=== PATIENT | male | born 1960 | race Caucasian/White ===

== ENCOUNTER 2024-07-13 14:41 | Emergency (ER) | payer MEDICAID ==
[~2024-07-13] VITALS: Ht 170.2 cm; Wt 75.0 kg
[2024-07-13 14:52] VITALS: BP 130/95; PULSE 124; RESP 16; O2SAT 100
[2024-07-13] MEDS ORDERED: ACETAMINOPHEN 325MG TABLET PO STA (14:58)
[2024-07-13] MEDS ORDERED: IBUP-2029 MT (20:19)
== END 2024-07-13 21:48 | disposition home or self-care (01) ==
LOC: ER 14:49
DX: S80.02XA Contusion of left knee, initial encounter (principal); E11.9 Type 2 diabetes mellitus without complications; W19.XXXA Unspecified fall, initial encounter; Y93.89 Activity, other specified; Y92.89 Other specified places as the place of occurrence of the external cause; Y99.8 Other external cause status
CPT/HCPCS: 99283; 73560; C1893